=== PATIENT | female | born 1990 | race Two or more races ===

== ENCOUNTER 2017-02-03 15:06 | Emergency (ER) | payer OTHER ==
[~2017-02-03] VITALS: Ht 162.6 cm; Wt 77.1 kg
[2017-02-03 15:25] VITALS: BP 152/63
--- NOTE | 2017-02-03 15:31 | PHYS DOC ---
Past Medical History Past Medical History: No Pertinent History Past Surgical History: Alcohol Use: Occasionally Drug Use: None Adult General Chief Complaint Chief Complaint: ABDOMINAL PAIN HPI HPI Patient is a 26 year old female with no significant medical history who presents with periumbilical abdominal pain, low back pain and dysuria that began today [place]. Patient is not sure if she is though she states her last menstrual cycle was at the beginning of January. Patient denies any concern for STDs. Review of Systems Review of Systems Constitutional: Denies fever or chills [] Eyes: Denies change in visual acuity, redness, or eye pain [] HENT: Denies nasal congestion or sore throat [] Respiratory: Denies cough or shortness of breath [] Cardiovascular: No additional information not addressed in HPI [] GI: Periumbilical abdominal pain, denies nausea, vomiting, bloody stools or diarrhea [] : Dysuria and denies any hematuria Musculoskeletal: Denies back pain or joint pain [] Integument: Denies rash or skin lesions [] Neurologic: Denies headache, focal weakness or sensory changes [] Endocrine: Denies polyuria or polydipsia [] Allergies Allergies Allergies Coded Allergies Type Severity Reaction Last Updated Verified No Known Drug Allergies 04/05/16 No Physical Exam Physical Exam Constitutional: Well developed, well nourished, no acute distress, non-toxic appearance. [] HENT: Normocephalic, atraumatic, bilateral external ears normal, oropharynx moist, no oral exudates, nose normal. [] Eyes: PERRLA, EOMI, conjunctiva normal, no discharge. [] Neck: Normal range of motion, no tenderness, supple, no stridor. [] Cardiovascular:Heart rate regular rhythm, no murmur [] Lungs & Thorax: Bilateral breath sounds clear to auscultation [] Abdomen: Bowel sounds normal, soft, no tenderness, no masses, no pulsatile masses. [] Skin: Warm, dry, no erythema, no rash. [] Back: No tenderness, no CVA tenderness. [] Extremities: No tenderness, no cyanosis, no clubbing, ROM intact, no edema. [] Neurologic: Alert and oriented X 3, normal motor function, normal sensory function, no focal deficits noted. [] Psychologic: Affect normal, judgement normal, mood normal. [] Current Patient Data Vital Signs Vital Signs Date Time Temp Pulse Resp B/P (MAP) Pulse Ox O2 Delivery O2 Flow Rate FiO2 02/03/17 15:25 98.8 70 16 152/63 (92) 100 Room Air 98.8 Lab Values Laboratory Tests Test 02/03/17 15:25 02/03/17 15:30 Urine Collection Type Unknown Urine Color Yellow Urine Clarity Clear Urine pH 6.0 Urine Specific [place] >=1.030 Urine Protein Negative mg/dL (NEG-TRACE) Urine Glucose (UA) Negative mg/dL (NEG) Urine Ketones (Stick) Negative mg/dL (NEG) Urine Blood Negative (NEG) Urine Nitrite Negative (NEG) Urine Bilirubin Negative (NEG) Urine Urobilinogen Dipstick 0.2 mg/dL (0.2 mg/dL) Urine Leukocyte Esterase Negative (NEG) Urine RBC 6-10 /HPF (0-2) Urine WBC 0 /HPF (0-4) Urine Squamous Epithelial Cells Mod /LPF Urine Bacteria Few /HPF (0-FEW) Urine Mucus Marked /LPF POC Urine HCG, Qualitative Hcg negative (Negative) EKG EKG [] Radiology/Procedures Radiology/Procedures [] Course & Med Decision Making Course & Med Decision Making Pertinent Labs and Imaging studies reviewed. (See chart for details) This is a 26-year-old female patient presenting to the ED with periumbilical abdominal pain, low back pain and dysuria that began today. Negative urine hCG. Urine negative for infection. Urine shows patient is dehydrated. Recommended she push his fluids. She is also around the time when her cycle is about to begin and this could also cause some of her pain. Recommended ibuprofen. Prescription for Pyridium given. Follow-up with primary care doctor or [facility] [employer] [facility] in one week if pain continues. Dragon Disclaimer Dragon Disclaimer This electronic medical record was generated, in whole or in part, using a voice recognition dictation system. Departure Departure Impression: Primary Impression: Dysuria Additional Impression: Low back pain Disposition: HOME, SELF-CARE Condition: STABLE Referrals: NO PCP (PCP) SHERIE GOETZ Jr, MD Follow-up in one week Patient Instructions: Back Pain, Adult, Dysuria-Brief Additional Instructions: You were seen for dysuria. You urine shows you are dehydrated, you need to drink a lot of fluids specifically water. Try and drink 64 ounces a day. You are also around the time of the month when you get a menstrual cycle. This can cause some abdominal pain as well as low back pain. Try and take ibuprofen 3 times a day. We also sent you home with Pyridium. This will help you with pain with urination. It will turn your urine orange. Follow-up with your doctor in one week. Scripts Ibuprofen (IBUPROFEN) 800 Mg Tablet 800 MG PO PRN Q6HRS Y for INFLAMMATION, #30 TAB Prov: AMY CANTRELL APRN 02/03/17 Phenazopyridine Hcl (PYRIDIUM) 100 Mg Tablet 100 MG PO TID, #9 TAB Prov: AMY CANTRELL APRN 02/03/17 Problem Qualifiers Additional Impression: Low back pain Chronicity: acute Back pain laterality: bilateral Sciatica presence: without sciatica Qualified Codes: M54.5 - Low back pain AMY CANTRELL APRN Feb 03, 2017 15:31
[2017-02-03 15:46] LABS: BILIRUBIN,URINE NEGATIVE (NEG); GLUCOSE,URINE NEGATIVE (NEG); NITRITE,URINE NEGATIVE (NEG); PROTEIN,URINE NEGATIVE (NEG-TRACE); UROBILINOGEN,URINE 0.2 mg/dL (0.2 mg/dL)
[2017-02-03 16:00] LABS: BACTERIA,URINE FEW /HPF (0-FEW); WBC,URINE 0 /HPF (0-4)
[2017-02-03 16:01] LABS: SQUAMOUS EPITHELIAL CELL,UR MOD /LPF
[2017-02-03] MEDS ORDERED: IBUP-1060 PO (16:14)
[2017-02-03] MEDS ORDERED: PHEN100T82 PO (16:14)
== END 2017-02-03 16:15 | disposition home or self-care (01) ==
LOC: ER 15:06
DX: M54.5 Low back pain (principal); R30.0 Dysuria; R10.33 Periumbilical pain
CPT/HCPCS: 81001; 81025; 99283

== ENCOUNTER 2017-06-23 12:48 | Emergency (ER) | payer OTHER ==
[2017-06-23 13:22] LABS: URINE HCG POC HCG POSITIVE (Negative)
[2017-06-23 13:42] LABS: BILIRUBIN,URINE NEGATIVE (NEG); CLARITY,URINE CLEAR; COLOR,URINE YELLOW; GLUCOSE,URINE NEGATIVE (NEG); NITRITE,URINE NEGATIVE (NEG); PH,URINE 7.5; PROTEIN,URINE NEGATIVE (NEG-TRACE); UROBILINOGEN,URINE 0.2 mg/dL (0.2 mg/dL)
[2017-06-23 14:19] LABS: BACTERIA,URINE MODERATE /HPF (0-FEW); RBC,URINE 0 /HPF (0-2); SQUAMOUS EPITHELIAL CELL,UR MANY /LPF
== END 2017-06-23 14:33 | disposition home or self-care (01) ==
LOC: ER 12:48
DX: O23.41 Unspecified infection of urinary tract in pregnancy, first trimester (principal); Z32.01 Encounter for pregnancy test, result positive; Z3A.00 Weeks of gestation of pregnancy not specified
CPT/HCPCS: 81001; 81025; 87086; 99284

== ENCOUNTER 2017-09-27 18:13 | Emergency (ER) | payer OTHER | END 2017-09-27 19:20 | disposition home or self-care (01) | LOC: ER 18:13 | DX: O99.512 Diseases of the respiratory system complicating pregnancy, second trimester (principal); J40 Bronchitis, not specified as acute or chronic; Z3A.18 18 weeks gestation of pregnancy | CPT/HCPCS: 99283 ==

== ENCOUNTER 2018-12-10 00:36 | Emergency (ER) | payer OTHER ==
[~2018-12-10] VITALS: Ht 162.6 cm; Wt 87.1 kg
[~2018-12-10 00:36] MED LIST: AZIT250T PO; IBUP-1060 PO; NITR100C62 PO; PHEN100T82 PO
--- NOTE | 2018-12-10 00:59 | PHYS DOC ---
Past Medical History Past Medical History: No Pertinent History Past Surgical History: Alcohol Use: None Drug Use: None Adult General Chief Complaint Chief Complaint: ABDOMINAL PAIN IN HPI HPI Patient is a 28 year old f wtih n/v/d multiple episodes of each since six pm chills no def fever has abdo cramping above the umbilicus worse right before vomiting no vag d/c or bleeding. no issues with pelvic area. at bedside 1255 am ob rn down for heart tones All other ROS neg unless otherwise noted in HPI Review of Systems Review of Systems see above Current Medications Current Medications Current Medications Medications (Trade) Dose Ordered Sig/Clarke Start Time Stop Time Status Last Admin Dose Admin Acetaminophen (Tylenol) 1,000 mg 1X ONCE 12/10/18 01:30 12/10/18 01:31 DC 12/10/18 01:02 1,000 MG Ondansetron HCl (Zofran) 4 mg 1X ONCE 12/10/18 01:30 12/10/18 01:31 DC 12/10/18 01:02 4 MG Sodium Chloride 1,000 ml @ 1,000 mls/hr 1X ONCE 12/10/18 02:00 12/10/18 02:59 12/10/18 01:02 1,000 MLS/HR Allergies Allergies Allergies Coded Allergies Type Severity Reaction Last Updated Verified No Known Drug Allergies 04/05/16 No Physical Exam Physical Exam see above Constitutional: Well developed, well nourished, no acute distress, non-toxic appearance. [] HENT: Normocephalic, atraumatic, bilateral external ears normal, oropharynx moist, no oral exudates, nose normal. [] Eyes: PERRLA, EOMI, conjunctiva normal, no discharge. [] Neck: Normal range of motion, no tenderness, supple, no stridor. [] Cardiovascular:Heart rate regular rhythm, no murmur [] Lungs & Thorax: Bilateral breath sounds clear to auscultation [] Abdomen: Bowel sounds normal, soft, no tenderness, no masses, no pulsatile masses. [] Skin: Warm, dry, no erythema, no rash. [] Back: No tenderness, no CVA tenderness. [] Extremities: No tenderness, no cyanosis, no clubbing, ROM intact, no edema. [] Neurologic: Alert and oriented X 3, normal motor function, normal sensory function, no focal deficits noted. [] Psychologic: Affect normal, judgement normal, mood normal. [] Current Patient Data Lab Values Laboratory Tests Test 12/10/18 00:50 White Blood Count 11.4 x10^3/uL (4.0-11.0) H Red Blood Count 3.92 x10^6/uL (3.50-5.40) Hemoglobin 12.5 g/dL (12.0-15.5) Hematocrit 36.0 % (36.0-47.0) Mean Corpuscular Volume 92 fL (79-100) Mean Corpuscular Hemoglobin 32 pg (25-35) Mean Corpuscular Hemoglobin Concent 35 g/dL (31-37) Red Cell Distribution Width 13.2 % (11.5-14.5) Platelet Count 266 x10^3/uL (140-400) Neutrophils (%) (Auto) 74 % (31-73) H Lymphocytes (%) (Auto) 19 % (24-48) L Monocytes (%) (Auto) 6 % (0-9) Eosinophils (%) (Auto) 1 % (0-3) Basophils (%) (Auto) 0 % (0-3) Neutrophils # (Auto) 8.4 x10^3/uL (1.8-7.7) H Lymphocytes # (Auto) 2.2 x10^3/uL (1.0-4.8) Monocytes # (Auto) 0.7 x10^3/uL (0.0-1.1) Eosinophils # (Auto) 0.1 x10^3/uL (0.0-0.7) Basophils # (Auto) 0.0 x10^3/uL (0.0-0.2) Sodium Level 139 mmol/L (136-145) Potassium Level 3.6 mmol/L (3.5-5.1) Chloride Level 104 mmol/L (98-107) Carbon Dioxide Level 24 mmol/L (21-32) Anion Gap 11 (6-14) Blood Urea Nitrogen 10 mg/dL (7-20) Creatinine 0.5 mg/dL (0.6-1.0) L Estimated GFR (Cockcroft-Gault) 149.1 BUN/Creatinine Ratio 20 (6-20) Glucose Level 91 mg/dL (70-99) Calcium Level 9.0 mg/dL (8.5-10.1) Total Bilirubin 0.4 mg/dL (0.2-1.0) Aspartate Amino Transferase (AST) 12 U/L (15-37) L Alanine Aminotransferase (ALT) 19 U/L (14-59) Alkaline Phosphatase 60 U/L (46-116) Total Protein 7.0 g/dL (6.4-8.2) Albumin 3.2 g/dL (3.4-5.0) L Albumin/Globulin Ratio 0.8 (1.0-1.7) L Lipase 168 U/L (73-393) Laboratory Tests 12/10/18 00:50 Laboratory Tests 12/10/18 00:50 EKG EKG [] Radiology/Procedures Radiology/Procedures [] Course & Med Decision Making Course & Med Decision Making Pertinent Labs and Imaging studies reviewed. (See chart for details) []n/v/d ivf zofran check labs abdo nontender tones intact 150 per ob rn pt was hydrated and improved after treatment pain much much better re-exam nontender reassurance has nausea meds at home. Dragon Disclaimer Dragon Disclaimer This electronic medical record was generated, in whole or in part, using a voice recognition dictation system. Departure Departure Impression: Primary Impression: Nausea vomiting and diarrhea Disposition: HOME, SELF-CARE Condition: STABLE Referrals: NO PCP (PCP) LUIS EDUARDO LIM MD Dec 10, 2018 00:59
[2018-12-10] MEDS ORDERED: IV NORMAL SALINE 1000ML BAG 1,000 ML IV ONE ×2 (01:00→02:00)
[2018-12-10 01:07] LABS: BASO % 0 % (0-3); EOS # 0.1 x10^3/uL (0.0-0.7); EOS % 1 % (0-3); HEMOGLOBIN 12.5 g/dL (12.0-15.5); LYMPH # 2.2 x10^3/uL (1.0-4.8); LYMPH % 19 % (24-48); MEAN CORPUSCULAR HEMOGLOBIN 32 pg (25-35); MEAN CORPUSCULAR HGB CONC 35 g/dL (31-37); MEAN CORPUSCULAR VOLUME 92 fL (79-100); MONO # 0.7 x10^3/uL (0.0-1.1); MONO % 6 % (0-9); NEUT # 8.4 x10^3/uL (1.8-7.7); NEUT % 74 % (31-73); PLATELET COUNT 266 x10^3/uL (140-400); RED BLOOD COUNT 3.92 x10^6/uL (3.50-5.40); RED CELL DISTRIBUTION WIDTH 13.2 % (11.5-14.5); WHITE BLOOD COUNT 11.4 x10^3/uL (4.0-11.0)
[2018-12-10 01:14] LABS: CREATININE 0.5 mg/dL (0.6-1.0); GFR 149.1; POTASSIUM 3.6 mmol/L (3.5-5.1)
[2018-12-10 01:20] LABS: ALBUMIN 3.2 g/dL (3.4-5.0); ALBUMIN/GLOBULIN RATIO 0.8 (1.0-1.7); TOTAL BILIRUBIN 0.4 mg/dL (0.2-1.0)
[2018-12-10] MEDS ORDERED: ACETAMINOPHEN 500 MG TABLET PO ONE (01:30)
[2018-12-10] MEDS ORDERED: ONDANSETRON PF 4 MG/2 ML VIAL. IV ONE (01:30)
[2018-12-10 01:42] VITALS: BP 104/55
--- NOTE | 2018-12-16 10:33 | NUR ---
Late entry made to Medical Record. IV Stop time transcribed from eMAR to IV spreadsheet
== END 2018-12-10 02:22 | disposition home or self-care (01) ==
LOC: ER 00:36
DX: O21.9 Vomiting of pregnancy, unspecified (principal); R10.33 Periumbilical pain; R19.7 Diarrhea, unspecified; Z3A.00 Weeks of gestation of pregnancy not specified
CPT/HCPCS: 36415; 80053; 83690; 85025; 96361; 96374; 99284; J2405; J7030

== ENCOUNTER 2019-06-01 21:10 | Emergency (ER) | payer OTHER ==
[~2019-06-01] VITALS: Ht 157.5 cm; Wt 81.8 kg
--- NOTE | 2019-06-01 21:31 | PHYS DOC ---
Past Medical History Past Medical History: No Pertinent History Past Surgical History: Alcohol Use: None Drug Use: None Adult General Chief Complaint Chief Complaint: POST-OP PROBLEM HPI HPI Patient is a 28 year old female who presents with headache on May 19 at . She was released on May 22. She stated that she is was to have an appointment with her CUSTOMER CONSULTANT on Sunday or Sunday and the weather was bad so she was unable to go. She stated that she did tell her CUSTOMER CONSULTANT this time that she was having increased lower abdominal pain on the right side of her surgical incision. Patient then began running fevers the last couple of days. Patient took 1 Percocet at 1700 and 800mg of ibuprofen at 1750. Patient's current temperature is 101 in the emergency room. Review of Systems Review of Systems Constitutional: fever or chills [] Respiratory: cough or denies shortness of breath [] GI: abdominal pain, nausea, vomiting, denies bloody stools or diarrhea [] : dysuria or denies hematuria [] All other systems were reviewed and found to be within normal limits, except as documented in this note. Current Medications Current Medications Current Medications Medications (Trade) Dose Ordered Sig/Clarke Start Time Stop Time Status Last Admin Dose Admin Acetaminophen (Tylenol) 650 mg 1X ONCE 06/01/19 21:45 06/01/19 21:46 DC 06/01/19 22:03 650 MG Ceftriaxone Sodium (Rocephin) 1 gm 1X ONCE 06/02/19 00:00 06/02/19 00:01 UNV Fentanyl Citrate (Fentanyl 2ml Vial) 50 mcg 1X ONCE 06/01/19 22:00 06/01/19 22:01 DC 06/01/19 22:03 50 MCG Info (CONTRAST GIVEN -- Rx MONITORING) 1 each PRN DAILY PRN 06/01/19 23:30 06/03/19 23:29 Iohexol (Omnipaque 300 Mg/ml) 100 ml 1X ONCE 06/01/19 22:15 06/01/19 22:16 DC Iohexol (Omnipaque 350 Mg/ml) 100 ml 1X ONCE 06/01/19 23:30 06/01/19 23:31 DC Sodium Chloride 1,000 ml @ 1,000 mls/hr 1X ONCE 06/01/19 23:15 06/02/19 00:14 06/01/19 23:22 1,000 MLS/HR Allergies Allergies Allergies Coded Allergies Type Severity Reaction Last Updated Verified No Known Drug Allergies 04/05/16 No Physical Exam Physical Exam Constitutional: Well developed, well nourished, no acute distress, non-toxic appearance. [] HENT: Normocephalic, atraumatic, bilateral external ears normal, oropharynx moist, no oral exudates, nose normal. [] Eyes: PERRLA, EOMI, conjunctiva normal, no discharge. [] Neck: Normal range of motion, no tenderness, supple, no stridor. [] Cardiovascular:Heart rate regular rhythm, no murmur [] Lungs & Thorax: Bilateral breath sounds clear to auscultation [] Abdomen: Bowel sounds normal, soft, Right lower tenderness, no masses, no pulsatile masses. [] Skin: Warm, dry, no erythema, no rash. [] Back: No tenderness, no CVA tenderness. [] Extremities: No tenderness, no cyanosis, no clubbing, ROM intact, no edema. [] Neurologic: Alert and oriented X 3, normal motor function, normal sensory function, no focal deficits noted. [] Psychologic: Affect normal, judgement normal, mood normal. [] Current Patient Data Vital Signs Vital Signs Date Time Temp Pulse Resp B/P (MAP) Pulse Ox O2 Delivery O2 Flow Rate FiO2 06/01/19 22:03 98 06/01/19 21:15 101.1 126 20 134/78 (96) Room Air 101.1 Lab Values Laboratory Tests Test 06/01/19 21:28 06/01/19 21:50 White Blood Count 8.9 x10^3/uL (4.0-11.0) Red Blood Count 4.48 x10^6/uL (3.50-5.40) Hemoglobin 13.7 g/dL (12.0-15.5) Hematocrit 40.5 % (36.0-47.0) Mean Corpuscular Volume 90 fL (79-100) Mean Corpuscular Hemoglobin 31 pg (25-35) Mean Corpuscular Hemoglobin Concent 34 g/dL (31-37) Red Cell Distribution Width 13.9 % (11.5-14.5) Platelet Count 319 x10^3/uL (140-400) Neutrophils (%) (Auto) 87 % (31-73) H Lymphocytes (%) (Auto) 9 % (24-48) L Monocytes (%) (Auto) 3 % (0-9) Eosinophils (%) (Auto) 1 % (0-3) Basophils (%) (Auto) 1 % (0-3) Neutrophils # (Auto) 7.8 x10^3/uL (1.8-7.7) H Lymphocytes # (Auto) 0.8 x10^3/uL (1.0-4.8) L Monocytes # (Auto) 0.3 x10^3/uL (0.0-1.1) Eosinophils # (Auto) 0.0 x10^3/uL (0.0-0.7) Basophils # (Auto) 0.1 x10^3/uL (0.0-0.2) Segmented Neutrophils % 85 % (35-66) H Band Neutrophils % 1 % (0-9) Lymphocytes % 9 % (24-48) L Monocytes % 5 % (0-10) Platelet Estimate Adequate (ADEQUATE) Sodium Level 138 mmol/L (136-145) Potassium Level 3.8 mmol/L (3.5-5.1) Chloride Level 100 mmol/L (98-107) Carbon Dioxide Level 24 mmol/L (21-32) Anion Gap 14 (6-14) Blood Urea Nitrogen 15 mg/dL (7-20) Creatinine 0.9 mg/dL (0.6-1.0) Estimated GFR (Cockcroft-Gault) 75.7 BUN/Creatinine Ratio 17 (6-20) Glucose Level 87 mg/dL (70-99) Lactic Acid Level 0.9 mmol/L (0.4-2.0) Calcium Level 9.8 mg/dL (8.5-10.1) Total Bilirubin 0.9 mg/dL (0.2-1.0) Aspartate Amino Transferase (AST) 16 U/L (15-37) Alanine Aminotransferase (ALT) 30 U/L (14-59) Alkaline Phosphatase 95 U/L (46-116) Total Protein 7.6 g/dL (6.4-8.2) Albumin 3.7 g/dL (3.4-5.0) Albumin/Globulin Ratio 0.9 (1.0-1.7) L Urine Collection Type Void Urine Color Yellow Urine Clarity Clear Urine pH 5.5 Urine Specific [place] 1.015 Urine Protein Negative mg/dL (NEG-TRACE) Urine Glucose (UA) Negative mg/dL (NEG) Urine Ketones (Stick) Negative mg/dL (NEG) Urine Blood Large (NEG) Urine Nitrite Negative (NEG) Urine Bilirubin Negative (NEG) Urine Urobilinogen Dipstick 0.2 mg/dL (0.2 mg/dL) Urine Leukocyte Esterase Small (NEG) Urine RBC >40 /HPF (0-2) Urine WBC 5-10 /HPF (0-4) Urine Squamous Epithelial Cells Few /LPF Urine Bacteria Few /HPF (0-FEW) Influenza Type A Antigen Negative (NEGATIVE) Influenza Type B Antigen Negative (NEGATIVE) Laboratory Tests 06/01/19 21:28 Laboratory Tests 06/01/19 21:28 EKG EKG [] Radiology/Procedures Radiology/Procedures [] Impressions: [address] [address] IMAGING REPORT Signed PATIENT: LEOPOLDO LUCIANO ACCOUNT: [id number] : 1990 LOCATION: ER AGE: 28 SEX: F EXAM STATUS: REG ER ORD. PHYSICIAN: CHRISTEN FIELDS APRN REASON: fever, post c section PROCEDURE: CHEST PA & LATERAL Exam: Chest 2 views INDICATION: Fever TECHNIQUE: Frontal and lateral views the chest Comparisons: None FINDINGS: The cardiomediastinal silhouette and pulmonary vessels are within normal limits. The lung and pleural spaces are clear. IMPRESSION: No acute cardiopulmonary process. Electronically signed by: Jesus Valdez MD (06/01/2019 10:08 PM) [facility] DICTATED and SIGNED BY: JESUS VALDEZ MD DATE: 06/01/[address] [address] IMAGING REPORT Signed PATIENT: LEOPOLDO LUCIANO ACCOUNT: [id number] : 1990 LOCATION: ER AGE: 28 SEX: F EXAM STATUS: REG ER ORD. PHYSICIAN: CHRISTEN FIELDS APRN REASON: abdominal pain, fever, post c section PROCEDURE: CT ABD PELV W/ IV CONTRST ONLY Exam: CT of abdomen and pelvis with contrast INDICATION: Abdominal pain, fever TECHNIQUE: Sequential axial images through the abdomen and pelvis obtained following the administration of 75 mL of Omni 300 IV contrast. Sagittal and coronal reformatted images were reconstructed from the axial data and reviewed. Comparisons: None FINDINGS: Heart size is normal. No pericardial effusion. Trace bilateral pleural effusions. Visualized lung bases are clear. No pleural effusion. Question filling defect within a segmental branch of the right lower lobe, however this is uncertain given phase of the exam. Liver, spleen, pancreas, gallbladder and adrenals are unremarkable. Kidneys a straight symmetric enhancement. No perinephric inflammation or hydronephrosis. No renal or ureteral calculi are identified. Bladder is decompressed not well evaluated. Uterus is not enlarged. Post gravid appearance of the uterus. No adjacent fluid collection is identified. Large and small bowel are unremarkable. Appendix is normal. No free intra-abdominal air or fluid. Abdominal aorta has a normal course and caliber. Abdominal vasculature is patent. No enlarged intra-abdominal lymph nodes. No suspicious osseous lesions or acute fractures. changes seen along the anterior abdominal wall. IMPRESSION: 1. Question filling defect within a segmental branch of the right lower lobe, however this is uncertain given phase of the exam. Consider CT of the chest or DVT ultrasound study for further evaluation. 2. Post gravid appearance of the uterus without focal fluid collection or findings to explain patient's fever in the abdomen. Exposure: One or more of the following in the visualized dose reduction techniques were utilized for this examination: 1. Automated exposure control 2. Adjustment of the MA and/or KV according to patient size 3. Use of iterative of reconstructive technique FOR INTERNAL CODING PURPOSES Critical result: Findings discussed with CHRISTEN FIELDS at 06/01/2019 10:36 PM. RESULT CODE: (C) Electronically signed by: Jesus Valdez MD (06/01/2019 10:36 PM) [facility] DICTATED and SIGNED BY: JESUS VALDEZ MD DATE: 06/01/19 2236 [facility] [address] [place] [address] IMAGING REPORT Signed PATIENT: LEOPOLDO LUCIANO ACCOUNT: [id number] : 1990 LOCATION: ER AGE: 28 SEX: F EXAM STATUS: REG ER ORD. PHYSICIAN: CHRISTEN FIELDS APRN REASON: evaluate for pe; questionable filling defect right lower lobe PROCEDURE: CT ANGIOGRAPHY CHEST EXAM: CT chest with contrast - pulmonary embolus protocol CLINICAL HISTORY: evaluate for pe; questionable filling defect right lower lobe. COMPARISON: CT abdomen and pelvis 06/01/19. TECHNIQUE: CT of the chest following the administration of intravenous contrast during the pulmonary arterial phase. Axial, coronal and sagittal reformatted images were generated including MIP images. ---PQRS compliance statement - One or more of the following individualized dose reduction techniques were utilized for this study: 1. Automated exposure control 2. Adjustment of the mA and/or kV according to patient size 3. Use of iterative reconstruction technique--- FINDINGS: CHEST: Diagnostic quality: Adequate. Pulmonary emboli: None seen Right heart strain: None Pulmonary arteries: Normal in caliber. Heart is not enlarged. No pericardial effusion. Trace bilateral pleural effusions. Dependent opacities bilaterally likely atelectasis. No suspicious lung nodule or mass is seen. No thoracic lymphadenopathy. Visualized Upper abdomen: Unremarkable Bones: Degenerative changes of the spine are seen. No aggressive osseous lesion is seen. IMPRESSION: 1. No pulmonary embolus is seen. 2. Trace bilateral pleural effusions. 3. Dependent opacities bilaterally likely atelectasis. 4. No suspicious lung nodule or mass. Electronically signed by: Rod Mendiola MD (06/01/2019 11:49 PM) [facility] DICTATED and SIGNED BY: ROD MENDIOLA MD DATE: 06/01/19 4077 Course & Med Decision Making Course & Med Decision Making No extremity swelling. Patient denies chest pain, nausea, vomiting, diarrhea, chest pain, shortness of air, pain with taking deep breaths, dizziness, weakness, visual changes, numbness or tingling. Ambulatory with a steady gait. Abdomen is soft but tender to the right side of her incision. The incision is healed with edges together and there is no redness or signs of infection. No drainage from the incision. Patient states that she does have some pain with urination. Her breasts are not reddened and there are no lumps are increased tenderness. No signs of mastitis. Skin pink warm and dry. Speaks in full clear sentences. Alert and oriented. Mucous membranes are moist. Patient states she does have a headache the front of her head. PERRLA. Lungs are clear to auscultation all lobes. No calf tenderness with palpation. Blood work unremarkable. Urine does show infection. Chest x-ray shows no acute findings. Jesus Valdez the Radiologist called me to let me know that there look like there might be a possible PE seen with the abdomen pelvis CT. He recommends a CT of the chest especially since patient is at higher risk for clots this time. He states that since the patient is young and has good kidney function she can have more contrast. I have ordered a CT angio chest to rule out PE. CT ABD PELV shows: IMPRESSION: 1. Question filling defect within a segmental branch of the right lower lobe, however this is uncertain given phase of the exam. Consider CT of the chest or DVT ultrasound study for further evaluation. 2. Post gravid appearance of the uterus without focal fluid collection or findings to explain patient's fever in the abdomen. CT Chest IMPRESSION: 1. No pulmonary embolus is seen. 2. Trace bilateral pleural effusions. 3. Dependent opacities bilaterally likely atelectasis. 4. No suspicious lung nodule or mass. Patient will be placed on Keflex. Patient to follow up with her OB as soon as possible. Patient is given Rocephin through her IV in the ED. Patient is asking for more Percocet. Told the patient that I can only give her a few more and I would not give her any more than that. Patient has a follow-up OB appointment on June 11 Nessa Disclaimer Nessa Disclaimer This electronic medical record was generated, in whole or in part, using a voice recognition dictation system. Departure Departure Impression: Primary Impression: UTI (urinary tract infection) Additional Impression: Fever Disposition: HOME, SELF-CARE Condition: STABLE Referrals: NO PCP (PCP) Patient Instructions: Urinary Tract Infection Additional Instructions: Take medicine as prescribed. Drink plenty of fluid. Continue taking ibuprofen or Tylenol for your fever pains. Follow-up with your OB doctor as soon as possible. Scripts Oxycodone/Apap 5-325 (PERCOCET 5-325 MG TABLET ) 1 Each Tablet 1 TAB PO PRN Q6HRS PRN for PAIN, #8 TAB 0 Refills Prov: CHRISTEN FIELDS APRN 06/02/19 Cephalexin (KEFLEX) 500 Mg Capsule 1 CAP PO BID for 7 Days, #14 CAP 0 Refills Prov: CHRISTEN FIELDS APRN 06/02/19 Problem Qualifiers Primary Impression: UTI (urinary tract infection) Urinary tract infection type: site unspecified Hematuria presence: without hematuria Qualified Codes: N39.0 - Urinary tract infection, site not specified Additional Impression: Fever Fever type: unspecified Qualified Codes: R50.9 - Fever, unspecified CHRISTEN FIELDS APRN Jun 01, 2019 21:31
[2019-06-01 21:38] LABS: BASO # 0.1 x10^3/uL (0.0-0.2); BASO % 1 % (0-3); EOS % 1 % (0-3); HEMATOCRIT 40.5 % (36.0-47.0); HEMOGLOBIN 13.7 g/dL (12.0-15.5); LYMPH # 0.8 x10^3/uL (1.0-4.8); LYMPH % 9 % (24-48); MEAN CORPUSCULAR HEMOGLOBIN 31 pg (25-35); MEAN CORPUSCULAR HGB CONC 34 g/dL (31-37); MEAN CORPUSCULAR VOLUME 90 fL (79-100); MONO # 0.3 x10^3/uL (0.0-1.1); MONO % 3 % (0-9); NEUT # 7.8 x10^3/uL (1.8-7.7); NEUT % 87 % (31-73); PLATELET COUNT 319 x10^3/uL (140-400); RED BLOOD COUNT 4.48 x10^6/uL (3.50-5.40); RED CELL DISTRIBUTION WIDTH 13.9 % (11.5-14.5); WHITE BLOOD COUNT 8.9 x10^3/uL (4.0-11.0)
[2019-06-01 21:45] LABS: CALCIUM 9.8 mg/dL (8.5-10.1); CREATININE 0.9 mg/dL (0.6-1.0); GFR 75.7; POTASSIUM 3.8 mmol/L (3.5-5.1)
[2019-06-01] MEDS ORDERED: IV NORMAL SALINE 1000ML BAG 1,000 ML IV ONE ×2 (21:45→23:15)
[2019-06-01] MEDS ORDERED: ACETAMINOPHEN 325 MG TABLET. PO ONE (21:45)
[2019-06-01 21:51] LABS: ALBUMIN 3.7 g/dL (3.4-5.0); ALBUMIN/GLOBULIN RATIO 0.9 (1.0-1.7); TOTAL BILIRUBIN 0.9 mg/dL (0.2-1.0); TOTAL PROTEIN 7.6 g/dL (6.4-8.2)
[2019-06-01 21:57] LABS: % BANDS 1 % (0-9); % LYMPHS 9 % (24-48); % MONOS 5 % (0-10); % SEGS 85 % (35-66); PLT ESTIMATE ADEQUATE (ADEQUATE)
[2019-06-01] MEDS ORDERED: fentaNYL PF VIAL 100 MCG/2 ML VIAL IVP ONE (22:00)
[2019-06-01 22:07] LABS: BILIRUBIN,URINE NEGATIVE (NEG); CLARITY,URINE CLEAR; COLOR,URINE YELLOW; NITRITE,URINE NEGATIVE (NEG); PH,URINE 5.5; PROTEIN,URINE NEGATIVE (NEG-TRACE); UROBILINOGEN,URINE 0.2 mg/dL (0.2 mg/dL)
--- NOTE | 2019-06-01 22:12 | RAD ---
Exam: Chest 2 views INDICATION: Fever TECHNIQUE: Frontal and lateral views the chest Comparisons: None FINDINGS: The cardiomediastinal silhouette and pulmonary vessels are within normal limits. The lung and pleural spaces are clear. IMPRESSION: No acute cardiopulmonary process. Electronically signed by: Jesus Gasca MD (06/01/2019 10:08 PM) [facility]
[2019-06-01 22:14] LABS: RBC,URINE >40 /HPF (0-2)
[2019-06-01 22:15] LABS: BACTERIA,URINE FEW /HPF (0-FEW); SQUAMOUS EPITHELIAL CELL,UR FEW /LPF
[2019-06-01] MEDS ORDERED: IOHEXOL 300 MG/ML 100ML VIAL. IV ONE (22:15)
[2019-06-01] MEDS ORDERED: CONTRAST GIVEN. MC PRN ×2 (22:15→23:30)
[2019-06-01 22:25] LABS: INFLUENZA A PATIENT NEGATIVE (NEGATIVE); INFLUENZA B PATIENT NEGATIVE (NEGATIVE)
--- NOTE | 2019-06-01 22:40 | RAD ---
Exam: CT of abdomen and pelvis with contrast INDICATION: Abdominal pain, fever TECHNIQUE: Sequential axial images through the abdomen and pelvis obtained following the administration of 75 mL of Omni 300 IV contrast. Sagittal and coronal reformatted images were reconstructed from the axial data and reviewed. Comparisons: None FINDINGS: Heart size is normal. No pericardial effusion. Trace bilateral pleural effusions. Visualized lung bases are clear. No pleural effusion. Question filling defect within a segmental branch of the right lower lobe, however this is uncertain given phase of the exam. Liver, spleen, pancreas, gallbladder and adrenals are unremarkable. Kidneys a straight symmetric enhancement. No perinephric inflammation or hydronephrosis. No renal or ureteral calculi are identified. Bladder is decompressed not well evaluated. Uterus is not enlarged. Post gravid appearance of the uterus. No adjacent fluid collection is identified. Large and small bowel are unremarkable. Appendix is normal. No free intra-abdominal air or fluid. Abdominal aorta has a normal course and caliber. Abdominal vasculature is patent. No enlarged intra-abdominal lymph nodes. No suspicious osseous lesions or acute fractures. changes seen along the anterior abdominal wall. IMPRESSION: 1. Question filling defect within a segmental branch of the right lower lobe, however this is uncertain given phase of the exam. Consider CT of the chest or DVT ultrasound study for further evaluation. 2. Post gravid appearance of the uterus without focal fluid collection or findings to explain patient's fever in the abdomen. Exposure: One or more of the following in the visualized dose reduction techniques were utilized for this examination: 1. Automated exposure control 2. Adjustment of the MA and/or KV according to patient size 3. Use of iterative of reconstructive technique FOR INTERNAL CODING PURPOSES Critical result: Findings discussed with CHRISTEN FIELDS at 06/01/2019 10:36 PM. RESULT CODE: (C) Electronically signed by: Jesus Gasca MD (06/01/2019 10:36 PM) [facility]
[2019-06-01] MEDS ORDERED: IOHEXOL 350 MG/ML 100 ML VIAL. IV ONE (23:30)
--- NOTE | 2019-06-01 23:52 | RAD ---
EXAM: CT chest with contrast - pulmonary embolus protocol CLINICAL HISTORY: evaluate for pe; questionable filling defect right lower lobe. COMPARISON: CT abdomen and pelvis 06/01/19. TECHNIQUE: CT of the chest following the administration of intravenous contrast during the pulmonary arterial phase. Axial, coronal and sagittal reformatted images were generated including MIP images. ---PQRS compliance statement - One or more of the following individualized dose reduction techniques were utilized for this study: 1. Automated exposure control 2. Adjustment of the mA and/or kV according to patient size 3. Use of iterative reconstruction technique--- FINDINGS: CHEST: Diagnostic quality: Adequate. Pulmonary emboli: None seen Right heart strain: None Pulmonary arteries: Normal in caliber. Heart is not enlarged. No pericardial effusion. Trace bilateral pleural effusions. Dependent opacities bilaterally likely atelectasis. No suspicious lung nodule or mass is seen. No thoracic lymphadenopathy. Visualized Upper abdomen: Unremarkable Bones: Degenerative changes of the spine are seen. No aggressive osseous lesion is seen. IMPRESSION: 1. No pulmonary embolus is seen. 2. Trace bilateral pleural effusions. 3. Dependent opacities bilaterally likely atelectasis. 4. No suspicious lung nodule or mass. Electronically signed by: Rod Monterroso MD (06/01/2019 11:49 PM) [facility]
[2019-06-02] MEDS ORDERED: CEPH-264 PO
[2019-06-02] MEDS ORDERED: OXYC1TAB15 PO (00:05)
[2019-06-02 00:08] VITALS: BP 121/57
[2019-06-02] MEDS ORDERED: cefTRIAXone IV Push 1 GM VIAL. IVP ONE (00:15)
== END 2019-06-02 00:45 | disposition home or self-care (01) ==
LOC: ER 21:10
DX: O90.89 Other complications of the puerperium, not elsewhere classified (principal); N39.0 Urinary tract infection, site not specified; O86.4 Pyrexia of unknown origin following delivery; R51 Headache; R11.2 Nausea with vomiting, unspecified
CPT/HCPCS: 36415; 71046; 71275; 74177; 80053; 81001; 83605; 85007; 85025; 87040; 87086; 87804; 96361; 96374; 96375; 99285; J0696; J3010; J7030

== ENCOUNTER 2019-10-31 10:51 | Emergency (ER) | payer OTHER ==
[~2019-10-31] VITALS: Ht 162.6 cm; Wt 80.0 kg
[~2019-10-31 10:51] MED LIST changes: +CEPH-264 PO; +OXYC1TAB15 PO
[2019-10-31 11:09] VITALS: BP 131/84
--- NOTE | 2019-10-31 11:46 | PHYS DOC ---
Past Medical History Past Medical History: No Pertinent History Past Surgical History: Smoking Status: Never Smoker Alcohol Use: None Drug Use: None General Adult EDM: Chief Complaint: COUGH HPI: HPI: Patient is a 29 year old female who presents to the emergency department with concerns of COVID-19 exposure. Patient states that on Sunday she began to have diarrhea, a dry cough, runny nose, watery eyes, headache, and no sense of smell. She denies any abdominal pain, nausea, vomiting, fever, rash, sore throat, chest pain, palpitations, shortness of breath, or wheezing. She reports her tested positive for COVID-19 yesterday. She went to [facility] and was swabbed for COVID-19 yesterday but has not received the results. She currently describes her headache as pounding and rates it a 6 out of 10 on the pain scale, she denies any alleviating or exacerbating factors, she has tried taking Tylenol for relief of the pain, she denies any radiation of the pain. The patient denies any medical history. Her surgical history includes 3 C-sections. Review of Systems: Review of Systems: Constitutional: Denies fever or chills. [] Eyes: Denies change in visual acuity. [] HENT: See HPI Respiratory: Denies wheezing or shortness of breath; see HPI. [] Cardiovascular: Denies chest pain or edema. [] GI: Denies abdominal pain, nausea, or vomiting; see HPI Musculoskeletal: Denies back pain or joint pain. [] Integument: Denies rash. [] Neurologic: Denies focal weakness or sensory changes; see HPI. [] Lymphatic: Denies swollen glands. [] Psychiatric: Denies depression or anxiety. [] Heart Score: Risk Factors: Risk Factors: DM, Current or recent (<one month) smoker, HTN, HLP, family history of CAD, obesity. Risk Scores: Score 0 - 3: 2.5% MACE over next 6 weeks - Discharge Home Score 4 - 6: 20.3% MACE over next 6 weeks - Admit for Clinical Observation Score 7 - 10: 72.7% MACE over next 6 weeks - Early Invasive Strategies Allergies: Allergies: Allergies Coded Allergies Type Severity Reaction Last Updated Verified No Known Drug Allergies 04/05/16 No Physical Exam: PE: Constitutional: Well developed, well nourished, no acute distress, non-toxic appearance. [] HENT: Normocephalic, atraumatic, bilateral external ears normal, nose normal. [] Eyes: PERRLA, EOMI, conjunctiva injected bilaterally, no discharge. [] Neck: Normal range of motion, no stridor. [] Cardiovascular:Heart rate regular rhythm Lungs & Thorax: Respirations even and unlabored, no retractions, no respiratory distress, lungs clear throughout all navarrete Skin: Warm, dry, no erythema, no rash. [] Extremities: No cyanosis, ROM intact, no edema. [] Neurologic: Alert and oriented X 3, no focal deficits noted. [] Psychologic: Affect normal, judgement normal, mood normal. [] Current Patient Data: Vital Signs: Vital Signs Date Time Temp Pulse Resp B/P (MAP) Pulse Ox O2 Delivery O2 Flow Rate FiO2 10/31/19 11:09 98.8 83 16 131/84 (100) 98 Room Air 98.8 EKG: EKG: [] Radiology/Procedures: Radiology/Procedures: PROCEDURE: CHEST AP ONLY CHEST AP ONLY History: Cough Comparison: June 01, 2019 Findings: Single view of the chest is submitted. There is no infiltrate, pneumothorax, or effusion. The pericardial cardiac silhouette is within normal limits in size. Impression: 1. There is no radiographic evidence of acute cardiopulmonary disease.[] Course & Med Decision Making: Course & Med Decision Making Pertinent Labs and Imaging studies reviewed. (See chart for details) Patient is a 29-year-old female who presented to the emergency room with concerns of COVID symptoms after being informed that her tested positive for COVID-19 yesterday. Work-up included a chest x-ray which was negative for any abnormal findings. The patient's vital signs were stable, physical exam was unremarkable. I provided patient with COVID-19 instructions and advised her to go home and quarantine Patient verbalized an understanding of home care, medications, follow-up, and return to ED instructions and was in agreement with the plan of care. COVID-19 CRITERIA: The patient was evaluated during the global COVID-19 pandemic, and that diagnosis was suspected/considered upon their initial presentation. Their evaluation, treatment and testing was consistent with current guidelines for patients who present with complaints or symptoms that may be related to COVID-19. [] Dragon Disclaimer: Dragon Disclaimer: This electronic medical record was generated, in whole or in part, using a voice recognition dictation system. Departure Departure Impression: Primary Impression: Person under investigation for COVID-19 Additional Impressions: URI (upper respiratory infection) Qualified Codes: J06.9 - Acute upper respiratory infection, unspecified Diarrhea Qualified Codes: R19.7 - Diarrhea, unspecified Disposition: 01 HOME, SELF-CARE Condition: STABLE Referrals: UNKNOWN PCP NAME (PCP) Patient Instructions: Diarrhea, Mpcu-[id number], Diet for Diarrhea, Adult Additional Instructions: You have been tested for or diagnosed with COVID-19. It is an infection caused by a new type of coronavirus. COVID-19 will cause cold-like or mild flu symptoms in most. It can cause more severe symptoms like problems breathing in some. There is no treatment for COVID-19. The body will clear the infection over time. Self-care will help to ease discomfort. Steps to Take: Self-Care Rest as needed. Healthy habits may help you feel better. Steps include: Choose healthy foods including fruits and vegetables. Drink water throughout the day. Get plenty of sleep each night. If you smoke, try to quit. It may ease breathing. Avoid alcohol. Keep Others Healthy The virus can spread to others. Droplets are released every time you sneeze or cough. The droplets can get into the mouth, nose, or eyes of people near you and lead to infection. To lower the chances of spreading COVID-19 to others: Stay at home until your doctor has said it is safe to leave. If you tested positive this will mean staying isolated until both of the following are true: At least 7 days have passed since the start of illness. You are free of fever for at least 72 hours without the use of medicine. During this time: - Avoid public areas, events, or transportation. Do not return to work or school until your doctor has said it is safe to do so. - Call ahead if you need to go to a medical center. Let them know you may have COVID-19. It will help them guide you where to go. They may also ask you to wear a facemask when you come to the office. - If you call for emergency medical services, let them know you may have COVID- 19. While at home: - Try to avoid close contact with others. Stay about 6 feet away. - If possible, spend most of your time in a separate room from others. - Use a face mask if you will be in close contact with others such as sharing a room or vehicle. - Have someone wipe down common surfaces in the home. Use household food vendor every day on areas like doorknobs, counters, or sinks. - Cough or sneeze into a tissue. Throw the tissue away right after use. If a tissue is not available, cough or sneeze into your elbow. - Wash your hands often. Wash them after sneezing or coughing. Use soap and water and wash for at least 20 seconds. Alcohol based hand latrine cleaner can be used if soap and water is not available. - Do not prepare food for others. Avoid sharing personal items like forks, spoons, or toothbrushes. - Avoid close contact with pets while you are sick. There is no evidence of the virus passing to pets. This is a safety step until more is known about this virus. Isolation can be frustrating. Social interaction can help. Keep in touch with friends and family through phone and tech options. You can still interact with others in your home, just keep a safe distance of about 6 feet. Follow-up: Your doctors office will check in with you to see if there are any changes in your health. You may be asked to keep track of symptoms to share with them. They will also let you know when you are clear to be in public again. Problems to Look Out For: Contact your doctor if your recovery is not going as you expect. Get emergency care if you have problems such as: - Trouble breathing - Nonstop chest pain or pressure - Changes in awareness, confusion, or problems waking - Lips or face have bluish color - Worsening of symptoms If you think you have an emergency, call for emergency medical services right away. As taken from [facility] Justicifation of Admission Dx: Justifications for Admission: Justification of Admission Dx: N/A COVID-19 Assessment: COVID-19 Patient Risks: Age 65 or older: No Sign of co-morbidity: No Exp to person + for COVID: Yes Exp to PUI: Yes Travel from affected area: No Lower respiratory symptoms: Yes Fever: No Other: No PPE Use: Full PPE with N95 mask or PAPR: Yes (N95) NOE TERAN [employer] COORDINATOR Oct 31, 2019 11:46
--- NOTE | 2019-10-31 12:05 | RAD ---
CHEST AP ONLY History: Cough Comparison: June 01, 2019 Findings: Single view of the chest is submitted. There is no infiltrate, pneumothorax, or effusion. The pericardial cardiac silhouette is within normal limits in size. Impression: 1. There is no radiographic evidence of acute cardiopulmonary disease. Electronically signed by: Fam Aj MD (10/31/2019 12:02 PM) [id number]
[2019-10-31] MEDS ORDERED: ACETAMINOPHEN 500 MG TABLET PO ONE (12:45)
== END 2019-10-31 12:59 | disposition home or self-care (01) ==
LOC: ER 10:51
DX: J06.9 Acute upper respiratory infection, unspecified (principal); Z20.828 Contact with and (suspected) exposure to other viral communicable diseases; R19.7 Diarrhea, unspecified; R09.89 Other specified symptoms and signs involving the circulatory and respiratory systems; Z98.890 Other specified postprocedural states
CPT/HCPCS: 71045; 99283

== ENCOUNTER 2020-09-19 20:24 | Emergency (ER) | payer OTHER ==
[~2020-09-19] VITALS: Ht 162.6 cm; Wt 86.4 kg
[2020-09-19] MEDS ORDERED: DEXAMETHASONE SOD PHOS 20 MG/5 ML VIAL. PO ONE (22:00)
--- NOTE | 2020-09-19 23:19 | ED.ADGEN ---
Past Medical History Past Medical History: No Pertinent History Past Surgical History: Smoking Status: Never Smoker Alcohol Use: None Drug Use: None General Adult EDM: Chief Complaint: SORE THROAT HPI: HPI: Patient is a 30 year old female who presents to the emergency department with reports of a sore throat that feels like strep. Patient states that she is also been having nasal congestion, frequent cough, and fatigue. States that the symptoms began about a week ago. Patient reports that she felt like she had a low-grade fever. She denies any nausea, vomiting, diarrhea, abdominal pain, chest pain, shortness of breath, or rash. Patient denies any known exposure to COVID-19. Patient does report frequent sneezing recently. She has been taking lrzg-[id number]-[id number] cold medications and cetirizine with little improvement in her symptoms. Patient states her symptoms are worse at night and when she first wakes up. She also complains of watery eyes, she denies any itching eyes. She currently rates her discomfort 8 out of 10 on the pain scale and describes it as a burning pain in her throat. Review of Systems: Review of Systems: Complete ROS is negative unless otherwise noted in HPI. Current Medications: Current Medications Medications (Trade) Dose Ordered Sig/Clarke Start Time Stop Time Status Last Admin Dose Admin Dexamethasone Sodium Phosphate (Decadron) 10 mg 1X ONCE 09/19/20 22:00 09/19/20 22:01 DC 09/19/20 22:27 10 MG Allergies: Allergies: Allergies Coded Allergies Type Severity Reaction Last Updated Verified No Known Drug Allergies 04/05/16 No Physical Exam: PE: See Above Constitutional: Well developed, well nourished, no acute distress, non-toxic appearance. [] HENT: Normocephalic, atraumatic, bilateral external ears normal, moist mucous membranes, 1+ tonsils bilaterally, tonsil stone present in the left posterior tonsil; nose congested with erythema and edema of bilateral nasal turbinates, clear drainage Eyes: PERRLA, EOMI, conjunctiva normal, no discharge. [] Neck: Normal range of motion, supple, nontender, no stridor. [] Cardiovascular:Heart rate regular rhythm Lungs & Thorax: Respirations even and unlabored, no retractions, no respiratory distress Skin: Warm, dry, no erythema, no rash. [] Extremities: No cyanosis, ROM intact, no edema. [] Neurologic: Alert and oriented X 3, no focal deficits noted. [] Psychologic: Affect normal, judgement normal, mood normal. [] Current Patient Data: Labs: Laboratory Tests Test 09/19/20 21:23 Group A Streptococcus Rapid Negative (NEGATIVE) Microbiology 09/19/20 Nose/Throat Culture - Preliminary, Resulted Vital Signs: Vital Signs Date Time Temp Pulse Resp B/P (MAP) Pulse Ox O2 Delivery O2 Flow Rate FiO2 09/19/20 23:23 89 18 125/73 (90) 96 Room Air 09/19/20 20:30 98.2 98.2 EKG: EKG: [] Heart Score: C/O Chest Pain: No Risk Scores: Score 0 - 3: 2.5% MACE over next 6 weeks - Discharge Home Score 4 - 6: 20.3% MACE over next 6 weeks - Admit for Clinical Observation Score 7 - 10: 72.7% MACE over next 6 weeks - Early Invasive Strategies Radiology/Procedures: Radiology/Procedures: [] Course & Med Decision Making: Course & Med Decision Making Pertinent Labs and Imaging studies reviewed. (See chart for details) 30-year-old female presented to the emergency department multiple complaints. Rapid strep test is negative. I encouraged the patient to continue taking her cetirizine. Patient was given 10 mg of p.o. Decadron in the emergency department. I encouraged her to purchase some Flonase and to use the medication 2 sprays each nare first thing in the morning. Patient declined COVID-19 testing, low suspicion for COVID-19 as patient symptoms are likely due to allergies patient denied any loss of taste/smell. Encourage patient follow-up with primary care doctor in the next 1 to 2 days, return to the ER symptoms worsen or fever develop. Patient verbalized an understanding of home care, medications, follow-up, and return to ED instructions and was in agreement with the plan of care. [] The patient was seen and interviewed as well as examined at the bedside. The chart was reviewed. The case was discussed. Agree with the plan of care. Dragon Disclaimer: Dragamy Disclaimer: This electronic medical record was generated, in whole or in part, using a voice recognition dictation system. Departure Departure Impression: Primary Impression: Pharyngitis Additional Impression: Allergic rhinitis Disposition: 01 HOME / SELF CARE / HOMELESS Condition: STABLE Referrals: UNKNOWN PCP NAME (PCP) Patient Instructions: Allergic Rhinitis, Viral Pharyngitis Additional Instructions: Recommend that you take 10 mg of generic Zyrtec (cetirizine) or Claritin at bedtime and use over the counter Flonase (fluticasone) nasal spray 2 sprays each nostril once daily in the morning. You may take Tylenol or ibuprofen as needed for pain/fever. Increase clear fluids. Avoid triggers such as smoke, fragrance, dust, and pollen. Salt water gargles as needed for comfort. Follow-up with your primary care doctor if symptoms persist, return to the ER if symptoms worsen. Problem Qualifiers Primary Impression: Pharyngitis Pharyngitis/tonsillitis etiology: unspecified etiology Qualified Codes: J02.9 - Acute pharyngitis, unspecified Additional Impression: Allergic rhinitis Allergic rhinitis trigger: unspecified Allergic rhinitis seasonality: unspecified Qualified Codes: J30.9 - Allergic rhinitis, unspecified NOE TERAN APRN September 19, 2020 23:19 CHRISTA MEI DO September 22, 2020 19:01
[2020-09-19 23:23] VITALS: BP 125/73
== END 2020-09-19 23:26 | disposition home or self-care (01) ==
LOC: ER 20:24
DX: J30.9 Allergic rhinitis, unspecified (principal); J02.9 Acute pharyngitis, unspecified
CPT/HCPCS: 87070; 87880; 99283; J1100